=== PATIENT | female | born 1945 | race Caucasian/White ===

== ENCOUNTER → 2023-12-27 06:35 | Day surgery (SDC) | payer OTHER, SELFPAY | LOC: GI 06:35 | PROVIDERS: ATTENDING PHYSICIAN Internal Medicine | DX: Z12.11 Encounter for screening for malignant neoplasm of colon (principal); K55.20 Angiodysplasia of colon without hemorrhage; K57.30 Diverticulosis of large intestine without perforation or abscess without bleeding; K64.8 Other hemorrhoids | CPT/HCPCS: G0121 ==

== ENCOUNTER → 2024-03-28 11:39 | Outpatient (REF) | payer OTHER, SELFPAY | LOC: WDC 11:39 | PROVIDERS: ATTENDING PHYSICIAN Family Medicine | DX: Z12.31 Encounter for screening mammogram for malignant neoplasm of breast (principal) | CPT/HCPCS: 77063; 77067 ==

== ENCOUNTER → 2024-04-10 13:13 | Outpatient (REF) | payer OTHER, SELFPAY | LOC: HWRAD 13:13 | PROVIDERS: ATTENDING PHYSICIAN Family Medicine | DX: Z78.0 Asymptomatic menopausal state (principal) | CPT/HCPCS: 77080 ==

== ENCOUNTER → 2024-05-29 13:38 | Outpatient (REF) | payer OTHER, SELFPAY | LOC: HWRAD 13:38 | PROVIDERS: ATTENDING PHYSICIAN Family Medicine | DX: M54.16 Radiculopathy, lumbar region (principal) | CPT/HCPCS: 72110 ==

== ENCOUNTER → 2024-07-16 10:04 | Outpatient (REF) | payer OTHER, SELFPAY | LOC: PAVMRI 10:04 | PROVIDERS: ATTENDING PHYSICIAN Physical Medicine & Rehabilitation; FAMILY PHYSICIAN Family Medicine | DX: M54.14 Radiculopathy, thoracic region (principal) | CPT/HCPCS: 72146 ==

== ENCOUNTER → 2024-10-15 10:12 | Outpatient (REF) | payer OTHER, SELFPAY | LOC: PAVMRI 10:12 | PROVIDERS: ATTENDING PHYSICIAN Physical Medicine & Rehabilitation; FAMILY PHYSICIAN Family Medicine | DX: M54.16 Radiculopathy, lumbar region (principal); M48.062 Spinal stenosis, lumbar region with neurogenic claudication; M54.17 Radiculopathy, lumbosacral region; M48.07 Spinal stenosis, lumbosacral region; M41.50 Other secondary scoliosis, site unspecified; M54.14 Radiculopathy, thoracic region | CPT/HCPCS: 72148 ==